=== PATIENT | female | born 1970 | race Caucasian/White ===

== ENCOUNTER 2019-01-28 13:58 | Inpatient (IN) ==
--- NOTE | 2019-01-28 14:15 | Emergency Department Note ---
Disposition Clinical Impression: Suicidal ideation Depression Qualifiers: Depression Type: unspecified Qualified Code(s): F32.9 - Major depressive disorder, single episode, unspecified Disposition: Admitted As Inpatient Condition: Good Time of Disposition: 16:52 General Adult HPI - General Chief complaint: ED Psychiatric Symptoms Stated complaint: SI Time Seen by Provider: 01/28/19 14:00 Source: patient, EMS Mode of arrival: EMS Limitations: no limitations Nursing Notes Reviewed: Yes Vital Signs Reviewed: Yes - History of Present Illness HPI Narrative: 48-year-old female with a past medical history of diverticulitis, depression, COPD that reports after leaving another hospital where she was admitted for possible small bowel obstruction after one of the nurses made her angry. Patient was admitted and was made nothing by mouth and had a nasogastric tube and then had a small bowel follow-through study done yesterday which according to charting which came with the patient shows no evidence of a small bowel obstruction. Patient was eating today and was told by the nurse that she was discharged but no one had come to discharge her and then she states that the nurse got very rude with her and now she reports that she wishes she lived in one of those states where they would help you commit suicide because she does not want to be here anymore. She denies access to firearms, she denies previous suicide attempts but does admit a history of illicit drug use a long time ago and multiple overdoses, she denies any specific plan. She denies any previous admissions for psychiatric health. She does note that every time she gets admitted and they stopped her medications this is what happens to her. Pain Scale: 8 - Related Data Home Medications Medication Instructions Recorded Confirmed Aspirin [Adult Low Dose Aspirin EC] 81 mg PO DAILY 08/25/15 07/13/17 Cholecalciferol (Vitamin D3) 1,000 unit PO BID 08/25/15 07/13/17 [Vitamin D3] Metoprolol XL (24 HR) Succ [Toprol 50 mg PO DAILY 08/25/15 07/13/17 Xl] Levothyroxine [Synthroid] 175 mcg PO DAILY 10/10/16 07/13/17 Tizanidine HCl [Zanaflex] 4 mg PO TID PRN 10/10/16 07/13/17 metFORMIN [Glucophage] 1,000 mg PO BIDWM 10/10/16 07/13/17 Dicyclomine [Bentyl] 20 mg PO QID 07/13/17 07/13/17 Etodolac [Lodine] 400 mg PO BID 07/13/17 07/13/17 Lisinopril/Hydrochlorothiazide 1 tab PO DAILY 07/13/17 07/13/17 [Zestoretic 10-12.5 mg Tablet] Topiramate [Topamax] 50 mg PO DAILY 07/13/17 07/13/17 raNITIdine HCl [Zantac] 150 mg PO BID 07/13/17 07/13/17 Previous Rx's Medication Instructions Recorded Ondansetron ODT [Zofran ODT] 4 mg SL Q8HR #20 tab.rapdis 08/03/18 Allergies Allergy/AdvReac Type Severity Reaction Status Date / Time Sulfa (Sulfonamide Allergy Hives Verified 07/13/17 09:58 Antibiotics) Review of Systems: In addition to that documented in the HPI above, the additional ROS was obtained: Constitutional: Denies fevers or chills Eyes: Denies vision changes ENMT: Reports sore throat since having the NG tube and cold-like symptoms CV: Denies chest pain Resp: Denies SOB GI: Denies vomiting or diarrhea Reports chronic right sided abdominal pain : Denies painful urination Reports frequent urination MSK: Denies recent trauma Skin: Denies new rashes Neuro: Denies new numbness or tingling or weakness Reports right third finger "sticking" that is new to her Past Medical History - Past Medical History Attestation: Yes The following information was validated with the patient. Medical history: Reports: arthritis, asthma, cancer, COPD, GERD, hypertension, RA, thyroid disease Surgical history: Reports: , cholecystectomy, colectomy, orthopedic, other, sinus surgery, thyroidectomy Psychiatric history: Reports: anxiety, depression [employer] history: Reports: bilateral tubal ligation - Social History Smoking Status: Former smoker Smokeless Tobacco Status: No Alcohol use: Reports: none Drug use: Reports: marijuana Physical Exam General: No acute distress. Well developed, well nourished. Head: atraumatic, normocephalic. ENT: No conjunctival injection, no scleral icterus. PERRLA. EOMI. Oropharynx non- erythematous. mucous membranes moist. Neuro: No focal deficits, no speech deficit, no facial droop, mentating well. BUE/BLE Str 5/5. Pulm: Lungs CTAB A/P. No wheezes, rales, ronchi. Cardio: RRR no m/r/g. Chest not tender to palpation. Abd: Soft, non-distended. Normoactive bowel sounds. Tender to palpation in RUQ. No guarding. Non rigid. Extremities: Radial pulses 2+ mary lou, dorsalis pedis/posterior tibialis 2+ mary lou. No LE edema. No cyanosis, clubbing. Skin: warm, dry, intact. No rashes. Psych: Appropriate mood and affect. Answers questions appropriately. Cooperative with exam. - General Limitations: no limitations Course Vital Signs Temperature 98.4 F 01/28/19 14:02 Pulse Rate 119 01/28/19 14:02 Respiratory Rate 18 01/28/19 14:02 Blood Pressure 139/100 01/28/19 14:02 O2 Sat by Pulse Oximetry 96 01/28/19 14:02 Temperature 98.4 F 01/28/19 14:02 Pulse Rate 119 01/28/19 14:02 Respiratory Rate 18 01/28/19 14:02 Blood Pressure 139/100 01/28/19 14:02 O2 Sat by Pulse Oximetry 96 01/28/19 14:02 Oxygen Delivery Oxygen Delivery Room Air Medical Decision Making - [facility] Narrative Medical decision making narrative: 48F with recent admission to outside hospital where they were concerned for SBO, however, she was r/o for this condition with small bowel follow-through and was eating and drinking as normal today. She had an encounter with a nurse while at the outside facility that left her feeling like she wants to end her life. Will obtain psych-clearance labs and call 1A. [place] slip was filled out, signed, and placed on the chart. 1532: Labs were unremarkable, will alert [facility]. 1533: Spoke with Mainor from that states that someone had already alerted them to the patient and that they would be up to see them soon. 1634: Mainor from at bedside to evaluate. 1650: Pt was evaluated by Mainor from who spoke with psychiatry who reports that they will be admitting the patient here for further psychiatric workup and treatment. Will submit bed request. Pt had 1 on 1 care with a sitter or other health professional while she was in the ED and she had her belongings secured and was in a gown. She remained stable and was medically cleared for admission to . - Medical Records Medical records reviewed: Yes I reviewed the patient's medical records. - Lab Data Lab results reviewed: Yes I reviewed the patient's lab results. Result diagrams: 01/28/19 14:21 01/28/19 14:21 Lab Results 01/28/19 01/28/19 01/28/19 Range/Units 14:17 14:17 14:21 WBC 10.1 (4.3-11.1) K/mcL RBC 4.64 (3.82-4.97) M/mcL Hgb 13.0 (11.5-15.4) g/dL Hct 40.6 (35.3-44.9) % MCV 87.5 (83.0-100.0) fL MCH 28.0 (28.0-33.3) pg MCHC 32.0 (31.6-35.5) g/dL RDW 14.6 H (11.5-14.5) % Plt Count 307 (140-400) K/mcL MPV 8.8 L (9.4-12.4) fL Immature Gran % 0.4 (0-4) % Seg Neutrophils % 72.6 % Lymphocytes % 17.9 % Monocytes % 7.2 % Eosinophils % 1.6 % Basophils % 0.3 % Neutrophils # 7.3 (1.6-8.9) K/mcL Lymphocytes # 1.8 (0.6-4.6) K/mcL Monocytes # 0.7 (0.0-1.3) K/mcL Eosinophils # 0.2 (0.0-0.6) K/mcL Basophils # 0.0 (0.0-0.2) K/mcL Sodium (136-145) mEq/L Potassium (3.5-5.1) mEq/L Chloride (98-107) mEq/L Carbon Dioxide (23-29) mEq/L BUN (6-20) mg/dL Creatinine (0.60-1.20) mg/dL Est GFR ( Amer) (> 60) Est GFR (Non-Af Amer) (> 60) BUN/Creatinine Ratio (6-26) Glucose (70-105) mg/dL POC Glucose (70-99) mg/dL Calculated Osmolality (280-300) Calcium (8.6-10.3) mg/dL Total Bilirubin (0.3-1.0) mg/dL Direct Bilirubin (0.0-0.2) mg/dL Indirect Bilirubin (0.0-1.2) mg/dL AST (13-39) Units/L ALT (7-52) Units/L Alkaline Phosphatase (34-104) Units/L Serum Total Protein (6.4-8.9) g/dL Albumin (3.5-5.7) g/dL Globulin (2.4-3.5) g/dL Albumin/Globulin Ratio (1.1-2.2) TSH (0.340-5.600) mcIU/mL Serum , Qual (Negative) Urine Color Yellow (Yellow) Urine Clarity Clear (Clear) Urine pH 6.0 (5.0-8.0) pH Units Ur Specific [place] 1.020 (1.010-1.025) Urine Protein Negative (Neg-Trace) mg/dL Urine Glucose (UA) Normal (Normal) mg/dL Urine Ketones Negative (Negative) mg/dL Urine Blood Negative (Negative) Urine Nitrite Negative (Negative) Urine Bilirubin Negative (Negative) Urine Urobilinogen Normal (Normal) mg/dL Ur Leukocyte Esterase Negative (Negative) Salicylates (15.0-30.0) mg/dL Urine Opiates Screen Positive H (Pankck=962) ng/mL Ur Buprenorphine Scrn Negative (Cutoff=5) ng/mL Acetaminophen (10-20) mcg/mL Ur Barbiturates Screen Negative (Hbotut=051) ng/mL Ur Phencyclidine Scrn Negative (Cutoff=25) ng/mL Ur Amphetamines Screen Negative (Odejnb=2378) ng/mL U Benzodiazepines Scrn Negative (Tehaer=654) ng/mL Urine Cocaine Screen Negative (Cutoff= 300) ng/mL U Marijuana (THC) Screen Positive H (Cutoff = 50) ng/mL Ur Drug Screen Interp See Below Ethyl Alcohol (Less than 10) mg/dL 01/28/19 01/28/19 01/28/19 Range/Units 14:21 14:21 14:56 WBC (4.3-11.1) K/mcL RBC (3.82-4.97) M/mcL Hgb (11.5-15.4) g/dL Hct (35.3-44.9) % MCV (83.0-100.0) fL MCH (28.0-33.3) pg MCHC (31.6-35.5) g/dL RDW (11.5-14.5) % Plt Count (140-400) K/mcL MPV (9.4-12.4) fL Immature Gran % (0-4) % Seg Neutrophils % % Lymphocytes % % Monocytes % % Eosinophils % % Basophils % % Neutrophils # (1.6-8.9) K/mcL Lymphocytes # (0.6-4.6) K/mcL Monocytes # (0.0-1.3) K/mcL Eosinophils # (0.0-0.6) K/mcL Basophils # (0.0-0.2) K/mcL Sodium 140 (136-145) mEq/L Potassium 3.5 (3.5-5.1) mEq/L Chloride 104 (98-107) mEq/L Carbon Dioxide 26 (23-29) mEq/L BUN 10 (6-20) mg/dL Creatinine 0.84 (0.60-1.20) mg/dL Est GFR ( Amer) > 60 (> 60) Est GFR (Non-Af Amer) > 60 (> 60) BUN/Creatinine Ratio 12 (6-26) Glucose 139 H (70-105) mg/dL POC Glucose 119 H (70-99) mg/dL Calculated Osmolality 291 (280-300) Calcium 8.4 L (8.6-10.3) mg/dL Total Bilirubin 0.3 (0.3-1.0) mg/dL Direct Bilirubin 0.1 (0.0-0.2) mg/dL Indirect Bilirubin 0.2 (0.0-1.2) mg/dL AST 33 (13-39) Units/L ALT 63 H (7-52) Units/L Alkaline Phosphatase 103 (34-104) Units/L Serum Total Protein 7.4 (6.4-8.9) g/dL Albumin 4.1 (3.5-5.7) g/dL Globulin 3.3 (2.4-3.5) g/dL Albumin/Globulin Ratio 1.2 (1.1-2.2) TSH 0.662 (0.340-5.600) mcIU/mL Serum , Qual Negative (Negative) Urine Color (Yellow) Urine Clarity (Clear) Urine pH (5.0-8.0) pH Units Ur Specific [place] (1.010-1.025) Urine Protein (Neg-Trace) mg/dL Urine Glucose (UA) (Normal) mg/dL Urine Ketones (Negative) mg/dL Urine Blood (Negative) Urine Nitrite (Negative) Urine Bilirubin (Negative) Urine Urobilinogen (Normal) mg/dL Ur Leukocyte Esterase (Negative) Salicylates < 2.5 L (15.0-30.0) mg/dL Urine Opiates Screen (Orrirg=997) ng/mL Ur Buprenorphine Scrn (Cutoff=5) ng/mL Acetaminophen < 10 L (10-20) mcg/mL Ur Barbiturates Screen (Regoib=304) ng/mL Ur Phencyclidine Scrn (Cutoff=25) ng/mL Ur Amphetamines Screen (Oprbbg=1329) ng/mL U Benzodiazepines Scrn (Xqbhev=663) ng/mL Urine Cocaine Screen (Cutoff= 300) ng/mL U Marijuana (THC) Screen (Cutoff = 50) ng/mL Ur Drug Screen Interp Ethyl Alcohol < 10 (Less than 10) mg/dL Attestation Statement - Attestation Attestation: I, Colin Cantor, examined this patient and my medical decision-making was reviewed with the [employer]ER/PA/Advanced Practice Nurse/Resident Physician. I agree with the documented findings, disposition and treatment plan as described except to the extent set forth below. 48 show female presents emergency Department with concerns of suicidal ideation. Patient states she wants to go to a facility up [place] where they have physician assisted suicide. Patient reports feelings of helplessness and hopelessness. Patient was recently evaluated at Hospital for possible small bowel obstruction. She had a CT which showed possible air-fluid levels however she had a small bowel follow-through which did not show evidence of bowel obstruction. Her exam results which are present in the emergency department from [place] show possible enteritis. Laboratory evaluation the emergency department did not show significant abnormality. Patient was medically cleared and evaluated by behavioral health. He felt that she required inpatient treatment and she will be admitted for further care and evaluation.
[2019-01-28 15:00] LABS: Bilirubin,Urine Negative (Negative); Blood,Urine Negative (Negative); Clarity,Urine Clear (Clear); Color,Urine Yellow (Yellow); Glucose,Urine (UA) Normal (Normal); Ketones,Urine Negative (Negative); Leukocyte Esterase,Urine Negative (Negative); Nitrite,Urine Negative (Negative); Protein,Urine Negative (Neg-Trace); Urobilinogen,Urine Normal (Normal)
[2019-01-28 15:15] LABS: Acetaminophen < 10 mcg/mL (10-20); Alanine Aminotransferase 63 Units/L (7-52); Albumin 4.1 g/dL (3.5-5.7); Albumin/Globulin Ratio 1.2 (1.1-2.2); Alkaline Phosphatase 103 Units/L (34-104); Aspartate Amino Transferase 33 Units/L (13-39); BUN/Creatinine Ratio 12 (6-26); Basophils % 0.3 %; Bilirubin,Direct 0.1 mg/dL (0.0-0.2); Bilirubin,Indirect 0.2 mg/dL (0.0-1.2); Bilirubin,Total 0.3 mg/dL (0.3-1.0); Blood Urea Nitrogen 10 mg/dL (6-20); Calcium 8.4 mg/dL (8.6-10.3); Carbon Dioxide 26 mEq/L (23-29); Chloride 104 mEq/L (98-107); Eosinophils # 0.2 K/mcL (0.0-0.6); Eosinophils % 1.6 %; Ethanol < 10 mg/dL (Less than 10); Globulin 3.3 g/dL (2.4-3.5); Glucose 139 mg/dL (70-105); Hematocrit 40.6 % (35.3-44.9); Immature Granulocytes % 0.4 % (0-4); Lymphocytes # 1.8 K/mcL (0.6-4.6); Lymphocytes % 17.9 %; Mean Corpuscular Volume 87.5 fL (83.0-100.0); Mean Platelet Volume 8.8 fL (9.4-12.4); Monocytes # 0.7 K/mcL (0.0-1.3); Monocytes % 7.2 %; Neutrophils # 7.3 K/mcL (1.6-8.9); Osmolality,Calculated 291 (280-300); Platelet Count 307 K/mcL (140-400); Potassium 3.5 mEq/L (3.5-5.1); Red Blood Count 4.64 M/mcL (3.82-4.97); Red Cell Distribution Width 14.6 % (11.5-14.5); Salicylate < 2.5 mg/dL (15.0-30.0); Segmented Neutrophils % 72.6 %; Sodium 140 mEq/L (136-145); Total Protein 7.4 g/dL (6.4-8.9); White Blood Count 10.1 K/mcL (4.3-11.1); eGFR For African Americans > 60 (> 60); eGFR For Non-African Americans > 60 (> 60)
[2019-01-28 15:27] LABS: Thyroid Stimulating Hormone 0.662 mcIU/mL (0.340-5.600)
[2019-01-28 15:34] LABS: Amphetamine Screen,Urine Negative ng/mL (Cutoff=1000); Barbiturate Screen,Urine Negative ng/mL (Cutoff=200); Benzodiazepines Screen,Urine Negative ng/mL (Cutoff=200); Cannabinoid Screen,Urine Positive ng/mL (Cutoff = 50); Cocaine Screen,Urine Negative ng/mL (Cutoff= 300); Opiate Screen,Urine Positive ng/mL (Cutoff=300); Phencyclidine Screen,Urine Negative ng/mL (Cutoff=25)
[2019-01-28] MEDS ORDERED: hydrOXYzine pamoate 25 MG CAPSULE PO PRN (17:42)
[2019-01-28] MEDS ORDERED: traZODone 50 MG TABLET PO PRN (17:42)
[2019-01-28] MEDS ORDERED: *HR* LORazepam 1 MG TABLET PO PRN (17:42)
[2019-01-28] MEDS ORDERED: Haloperidol Lactate 5 MG/ML VIAL IM PRN (17:42)
[2019-01-28] MEDS ORDERED: Mag Hydrox/Al Hydrox/Simeth 30 ML UDC PO PRN (17:42)
[2019-01-28] MEDS ORDERED: *HR* LORazepam 2 MG/ML VIAL IM PRN (17:42)
[2019-01-28] MEDS ORDERED: Ibuprofen 400 MG TABLET PO PRN (17:42)
[2019-01-28] MEDS ORDERED: MOM Conc 10 ML UD.LIQ PO PRN (17:42)
--- NOTE | 2019-01-29 09:00 | Discharge Summary ---
Date of Encounter: 01/29/19 Time of Encounter: 08:58 History of Present Illness Chief complaint: "I should not be here" Admitted From: Emergency Dept History of Present Illness: Ms. Doe is a 48-year-old female with a past medical history of di verticulitis, depression, COPD that reports after leaving another hospital where she was admitted for possible small bowel obstruction after one of the nurses made her angry she was sent here because she made a comment about at some point going to one of the states "[facility]" where they allow physician assisted suicide.. Patient was eating today and was told by the nurse that she was discharged but no one had come to discharge her and then she states that the nurse got very rude with her and now she reports that she wishes she lived in one of those states where they would help you commit suicide when her medical conditions worse and. She denies access to firearms, she denies previous suicide attempts , she denies any specific plan. She denies any previous admissions for psychiatric health. She does note that every time she gets admitted and they stopped her medications this is what happens to her. She said they do this again. They stopped all her home medications including her Effexor and Synthroid which she said further has made her frustrated This morning she denies any suicidal thoughts, ideations, or plans. She is future oriented to getting back home to get back on her medications, be with her dogs, help care for her mother, and be there to support her son. She says she would never intentionally harm herself because she knows how much that would hurt them and they need her. She denies depressive symptoms other than saying that she sometimes is tearful. She denies manic symptoms. No psychosis. Past Med Surg Social Fam HX - Past Medical History Medical history: arthritis, asthma, cancer, COPD, GERD, hypertension, RA, thyroid disease - Past Psychiatric History Psychiatric history: Reports: depression. Denies: prior suicide attempt, previous psychiatric hospitalization Past psychiatric history details: She has never been in a psychiatric hospital before. She has no prior suicide attempts. Her primary care physician has her on Effexor. She has never required therapy. Family psychiatric history: No Family History of Suicide: None - Past Surgical History Surgical History: , cholecystectomy, colectomy, orthopedic, other, sinus surgery, thyroidectomy - Social History Smoking Status: Former smoker Smokeless Tobacco Status: No Alcohol use: none Drug use: marijuana Occupational status: employed Current living situation: Home Activity Level: Independent ambulation Recent Out of Country Travel Within the Last 8 Weeks: No Exposure or Possible Exposure to Illness During Travel: No Additional social history: He works at a restaurant. She lives alone with her animals. She says that her son, mother, and sister are all very supportive of her. Medications - Discharge Medications Tizanidine HCl [Zanaflex] 4 mg PO TID PRN 10/10/16 [History] Dicyclomine [Bentyl] 20 mg PO QID 07/13/17 [History] Topiramate [Topamax] 50 mg PO HS 07/13/17 [History] Albuterol Sulfate [Ventolin Hfa] 2 puff IH QID PRN 01/28/19 [History] Amlodipine Besylate 10 mg PO DAILY 01/28/19 [History] Esomeprazole Magnesium [Nexium 24Hr] 20 mg PO BID 01/28/19 [History] Gabapentin 600 mg PO QID 01/28/19 [History] Ibuprofen 800 mg PO TID PRN 01/28/19 [History] Levothyroxine Sodium 125 mcg PO QAM 01/28/19 [History] Metoprolol Succinate 75 mg PO DAILY 01/28/19 [History] Simvastatin [Zocor] 20 mg PO HS 01/28/19 [History] Venlafaxine HCl [Venlafaxine HCl ER] 225 mg PO DAILY 01/28/19 [History] Allergy/AdvReac Type Severity Reaction Status Date / Time Sulfa (Sulfonamide Allergy Hives Verified 07/13/17 09:58 Antibiotics) Review of Systems Constitutional: Reports: weakness Eyes: Denies: eye pain Ears, Nose, Throat: Denies: ear pain Cardiovascular: Denies: chest pain Respiratory: Denies: cough Gastrointestinal: Denies: abdominal pain Genitourinary female: Denies: urgency Musculoskeletal: Reports: joint pain, myalgia Integumentary: Denies: rash Neurological: Reports: weakness Psychiatric: Reports: depression. Denies: abnormal sleep pattern, suicidal ideation, change in appetite, homicidal ideation, auditory hallucinations, visual hallucinations Endocrine: Reports: fatigue Hematologic/Lymphatic: Denies: easy bleeding Allergic/Immunologic: Denies: facial swelling Exam - HEENT Head exam IM: Present: atraumatic Eye exam IM: Present: EOMI ENT exam IM: Present: mucous membranes moist - Neurological Neurological exam: Present: CN II-XII intact - Respiratory Respiratory exam IM: Absent: respiratory distress - GI/Abdominal GI/Abdominal exam IM: Present: no peritoneal signs - Extremities Extremities exam IM: Present: full ROM - Skin Skin exam IM: Absent: diaphoretic - Constitutional Vitals: Temp Pulse Resp BP Pulse Ox 96.1 F L 133 20 143/86 97 01/28/19 21:00 01/28/19 21:00 01/28/19 21:00 01/28/19 21:00 01/28/19 21:00 General appearance: age & developmentally appropriate - Musculoskeletal Gait: normal Station: relaxed Strength & Tone: normal for patient - Psychiatric Patient Orientation: Yes Person, Yes Time, Yes Place, Yes Circumstance Level of alertness: Alert Behavior: calm, cooperative Psychomotor activity: Normal Eye Contact: Maintains Eye Contact Mood Description: Euthymic/stable Patient description of mood: Fine Affect description: congruent with mood, full range Speech Volume: Normal Speech pattern: normal rate, normal rhythm, normal tone, fluent, spontaneous Language & Vocabulary: consistent with education Thought Process: Linear, Goal Oriented Thought Content: No Suicidal ideation, No Homicidal ideation, No Overt delusions Perceptual Disturbances: No Auditory hallucinations, No Visual hallucinations Attention Span Ability: Capable of Focused Attention Memory Description: Grossly Intact Patient Reliability: Reliable Historian Fund of knowledge: Yes abstraction ability, Yes average, Yes aware of current events Intelligence Estimate: Average Judgment: Good Insight: Full Results - Drug Levels and Toxicology Drug Levels and Toxicology: Drug Levels and Toxicity 01/28/19 01/28/19 14:17 14:21 Urine Opiates Screen Positive H Acetaminophen < 10 L Ur Barbiturates Screen Negative Ur Phencyclidine Scrn Negative Ur Amphetamines Screen Negative U Benzodiazepines Scrn Negative Urine Cocaine Screen Negative U Marijuana (THC) Screen Positive H Ethyl Alcohol < 10 - Labs Labs: Laboratory Last Values WBC 10.1 K/mcL (4.3-11.1) 01/28/19 14:21 RBC 4.64 M/mcL (3.82-4.97) 01/28/19 14:21 Hgb 13.0 g/dL (11.5-15.4) 01/28/19 14:21 Hct 40.6 % (35.3-44.9) 01/28/19 14:21 MCV 87.5 fL (83.0-100.0) 01/28/19 14:21 MCH 28.0 pg (28.0-33.3) 01/28/19 14:21 MCHC 32.0 g/dL (31.6-35.5) 01/28/19 14:21 RDW 14.6 % (11.5-14.5) H 01/28/19 14:21 Plt Count 307 K/mcL (140-400) 01/28/19 14:21 MPV 8.8 fL (9.4-12.4) L 01/28/19 14:21 Immature Gran % 0.4 % (0-4) 01/28/19 14:21 Seg Neutrophils % 72.6 % 01/28/19 14:21 Lymphocytes % 17.9 % 01/28/19 14:21 Monocytes % 7.2 % 01/28/19 14:21 Eosinophils % 1.6 % 01/28/19 14:21 Basophils % 0.3 % 01/28/19 14:21 Neutrophils # 7.3 K/mcL (1.6-8.9) 01/28/19 14:21 Lymphocytes # 1.8 K/mcL (0.6-4.6) 01/28/19 14:21 Monocytes # 0.7 K/mcL (0.0-1.3) 01/28/19 14:21 Eosinophils # 0.2 K/mcL (0.0-0.6) 01/28/19 14:21 Basophils # 0.0 K/mcL (0.0-0.2) 01/28/19 14:21 Sodium 140 mEq/L (136-145) 01/28/19 14:21 Potassium 3.5 mEq/L (3.5-5.1) 01/28/19 14:21 Chloride 104 mEq/L (98-107) 01/28/19 14:21 Carbon Dioxide 26 mEq/L (23-29) 01/28/19 14:21 BUN 10 mg/dL (6-20) 01/28/19 14:21 Creatinine 0.84 mg/dL (0.60-1.20) 01/28/19 14:21 Est GFR ( Amer) > 60 (> 60) 01/28/19 14:21 Est GFR (Non-Af Amer) > 60 (> 60) 01/28/19 14:21 BUN/Creatinine Ratio 12 (6-26) 01/28/19 14:21 Glucose 139 mg/dL (70-105) H 01/28/19 14:21 POC Glucose 119 mg/dL (70-99) H 01/28/19 14:56 Calculated Osmolality 291 (280-300) 01/28/19 14:21 Calcium 8.4 mg/dL (8.6-10.3) L 01/28/19 14:21 Total Bilirubin 0.3 mg/dL (0.3-1.0) 01/28/19 14:21 Direct Bilirubin 0.1 mg/dL (0.0-0.2) 01/28/19 14:21 Indirect Bilirubin 0.2 mg/dL (0.0-1.2) 01/28/19 14:21 AST 33 Units/L (13-39) 01/28/19 14:21 ALT 63 Units/L (7-52) H 01/28/19 14:21 Alkaline Phosphatase 103 Units/L (34-104) 01/28/19 14:21 Serum Total Protein 7.4 g/dL (6.4-8.9) 01/28/19 14:21 Albumin 4.1 g/dL (3.5-5.7) 01/28/19 14:21 Globulin 3.3 g/dL (2.4-3.5) 01/28/19 14:21 Albumin/Globulin Ratio 1.2 (1.1-2.2) 01/28/19 14:21 TSH 0.662 mcIU/mL (0.340-5.600) 01/28/19 14:21 Serum , Qual Negative (Negative) 01/28/19 14:21 Urine Color Yellow (Yellow) 01/28/19 14:17 Urine Clarity Clear (Clear) 01/28/19 14:17 Urine pH 6.0 pH Units (5.0-8.0) 01/28/19 14:17 Ur Specific [place] 1.020 (1.010-1.025) 01/28/19 14:17 Urine Protein Negative mg/dL (Neg-Trace) 01/28/19 14:17 Urine Glucose (UA) Normal mg/dL (Normal) 01/28/19 14:17 Urine Ketones Negative mg/dL (Negative) 01/28/19 14:17 Urine Blood Negative (Negative) 01/28/19 14:17 Urine Nitrite Negative (Negative) 01/28/19 14:17 Urine Bilirubin Negative (Negative) 01/28/19 14:17 Urine Urobilinogen Normal mg/dL (Normal) 01/28/19 14:17 Ur Leukocyte Esterase Negative (Negative) 01/28/19 14:17 Salicylates < 2.5 mg/dL (15.0-30.0) L 01/28/19 14:21 Urine Opiates Screen Positive ng/mL (Iksulr=804) H 01/28/19 14:17 Ur Buprenorphine Scrn Negative ng/mL (Cutoff=5) 01/28/19 14:17 Acetaminophen < 10 mcg/mL (10-20) L 01/28/19 14:21 Ur Barbiturates Screen Negative ng/mL (Fqpzmd=941) 01/28/19 14:17 Ur Phencyclidine Scrn Negative ng/mL (Cutoff=25) 01/28/19 14:17 Ur Amphetamines Screen Negative ng/mL (Upxbws=3032) 01/28/19 14:17 U Benzodiazepines Scrn Negative ng/mL (Oltelk=417) 01/28/19 14:17 Urine Cocaine Screen Negative ng/mL (Cutoff= 300) 01/28/19 14:17 U Marijuana (THC) Screen Positive ng/mL (Cutoff = 50) H 01/28/19 14:17 Ur Drug Screen Interp See Below 01/28/19 14:17 Ethyl Alcohol < 10 mg/dL (Less than 10) 01/28/19 14:21 Diagnosis - Discharge Diagnosis (1) Depression Status: Acute Qualifiers: Depression Type: major depressive disorder Major depression recurrence: r ecurrent Active/Remission status: currently active Major depression episode severity: mild Qualified Code(s): F33.0 - Major depressive disorder, recurrent, mild Assessment and Plan - Patient/Caregiver Discharge Instructions Activity: resume usual activities as tolerated Diet: regular diet Additional Instructions: Continue current medications. Follow up with outpatient mental health. Encourage continued therapy in a group or individual setting. The patient was discharged to home. - Follow up Plan Follow up with: NONE,PCP [Primary Care Provider] - Functional capacity at discharge: independent ambulation Overall status at discharge: Stable Disposition: Home, Self-Care Provider Date of admission: 01/28/19 17:49 Primary care physician: PCP NONE Discharging clinician: Lashawn Santillan Hospital Course Hospital course: Ms. Doe is a 48 year old female Time spent discussing smoking cessation with patient: 3 to 10 minutes Does patient wish to continue nicotine replacement upon disc: No - Time Spent with Patient Total time spent providing and/or coordinating discharge services: 40 Less than 30 minutes Specific discharge activities: Interval history reviewed. Available labs reviewed . Psychotherapy provided. Patient had an opportunity to ask questions and address concerns. Patient was in agreement with the treatment plan. The risks benefits and side effects of medications were discussed with the patient, including alternatives and treatment. The patient was educated on the abstaining from any alcohol or illicit substances, following up with all scheduled appointments, and taking all medications as prescribed. Procedures - Procedures Procedures: Medication Management, Crisis Stabilization, Supportive Therapy, Group Therapy, Psychoeducational Therapy Quality - Multiple Antipsychotics Patient discharged on 2 or more antipsychotic medications: No
[2019-01-29 09:23] VITALS: BP 158/107
== END 2019-01-29 09:45 | disposition home or self-care (01) | DRG 885 ==
LOC: 1ANU 13:58 → EMEROOARM 13:58 → 1ANU 17:30
PROVIDERS: ADMIT Psychiatry & Neurology Psychiatry; ATTEND Psychiatry & Neurology Psychiatry